=== PATIENT | female | born 1990 | race Two or more races ===

== ENCOUNTER 2016-08-25 14:10 | Emergency (ER) | payer OTHER ==
[~2016-08-25] VITALS: Ht 152.4 cm; Wt 56.7 kg
[2016-08-25 15:50] VITALS: BP 101/70
--- NOTE | 2016-08-25 20:52 | Emergency Room Report ---
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 Symptoms began one week prior and have been worsening. She states that she has been eating, drinking, and sleeping well. She denies any changes in mental health. She has been taking all medications as directed including insulin and Synthroid. She denies any other symptoms including nausea, vomiting, fever, chills, abdominal pain, dysuria, myalgia, cold intolerance Allergies: Coded Allergies: CORN (Verified Allergy, Unknown, 08/25/16) Patient History Past Medical History: see triage record Pertinent Family History: none Last Menstrual Period: 3 months ago Now: No Reviewed Nursing Documentation: PMH: Agreed, PSxH: Agreed Nursing Documentation-PMH Past Medical History: No History, Except For Review of Systems All Other Systems: negative except mentioned in HPI Physical Exam Vital Signs Date Time Temp Pulse Resp B/P Pulse Ox O2 Delivery O2 Flow Rate FiO2 08/25/16 14:24 97.9 67 18 98/63 100 Room Air Sp02 EP Interpretation: reviewed, normal General Appearance: no apparent distress, alert, GCS 15, non-toxic Head: normocephalic, atraumatic Eyes: bilateral eye PERRL, bilateral eye normal inspection ENT: hearing grossly normal, normal pharynx, no angioedema, normal voice Neck: full range of motion, supple/symm/no masses Respiratory: chest non-tender, lungs clear, normal breath sounds, speaking full sentences Cardiovascular #1: regular rate, rhythm, no edema Cardiovascular #2: 2+ carotid (R), 2+ carotid (L), 2+ radial (R), 2+ radial (L) , 2+ dorsalis pedis (R), 2+ dorsalis pedis (L) Gastrointestinal: normal bowel sounds, non tender, soft, non-distended, no guarding, no rebound Rectal: deferred Genitourinary: normal inspection, no CVA tenderness Musculoskeletal: back normal, gait/station normal, normal range of motion, non- tender Neurologic: alert, oriented x3, responsive, motor strength/tone normal, sensory intact, speech normal Psychiatric: judgement/insight normal, memory normal, mood/affect normal, no suicidal/homicidal ideation Reflexes: 3+ bicep (R), 3+ bicep (L), 3+ tricep (R), 3+ tricep (L), 3+ knee (R) , 3+ knee (L) Skin: normal color, no rash, warm/dry, well hydrated Lymphatic: no adenopathy Medical Decision Making PA Attestation Dr. Branch is my supervising physician. 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 A&Ox4 PERRL. EOMI. Normal mentation. RRR. No MRG Lungs CTA bilat Abdomen: Normal appearance. Non distended. No ecchymosis. Normal BS. Non TTP. No McBurney point tenderness. No guarding. Skin is warm and dry, no rashes. Orders were placed but the patient has chosen to leave AMA. She states that she did not want to come to the emergency department first place and will followup with PMD and director of contracts. The patient understands the risks associated with leaving. ER precautions are given Last Vital Signs Date Time Temp Pulse Resp B/P Pulse Ox O2 Delivery O2 Flow Rate FiO2 08/25/16 15:50 98.2 60 16 101/70 98 Room Air Status: improved Disposition: AGAINST MEDICAL ADVICE Condition: Stable Referrals: NON PHYSICIAN (PCP) Patient Instructions: Fatigue Additional Instructions: I discussed my findings with the patient. All questions and concerns have been answered. Treatment and medication compliance have been addressed. I advised the patient that they need to follow up with PMD in 3-5 days. Return to ED if symptoms worsen, new symptoms arise, or if needed for any reason. Patient verbalized understanding of discharge instructions. The patient has decided to leave AMA before any testing could be done and understands the risks. OLGA PARSON Aug 25, 2016 20:52
== END 2016-08-25 15:50 | disposition left against medical advice (07) ==
LOC: EMR 15:45
DX: R53.83 Other fatigue (principal); E10.8 Type 1 diabetes mellitus with unspecified complications; Z91.018 Allergy to other foods; Z79.4 Long term (current) use of insulin
CPT/HCPCS: 82962; 99282